=== PATIENT | female | born 1990 | race Caucasian/White ===

== ENCOUNTER 2022-06-13 01:17 | Emergency (ER) | payer OTHER ==
[~2022-06-13] VITALS: Ht 157.5 cm; Wt 72.6 kg
[2022-06-13 03:35] VITALS: BP 131/78
--- NOTE | 2022-06-13 03:37 | NUR ---
BIBSELF FROM COUGH X 4 NIGHTS. PT A/OX4. TOLERATING R/A WELL WITH NO RESP DISTRESS. RR EVEN AND NONLABORED.
--- NOTE | 2022-06-13 05:06 | NUR ---
DR QUENTIN CARCAMO AT PT'S BEDSIDE FOR EVAL WITH SENIOR ADVISORY
[2022-06-13] MEDS ORDERED: AMOX-430 PO (05:16)
[2022-06-13] MEDS ORDERED: KETOROLAC TROMETHAMINE INJ 30 MG/ML VIAL ONE (05:17)
[2022-06-13] MEDS ORDERED: IBUP-1955 PO (05:17)
[2022-06-13] MEDS ORDERED: DEXAMETHASONE 4 MG TABLET ONE (05:18)
--- NOTE | 2022-06-13 05:24 | NUR ---
STEP SWAB COLLECTED AND SENT TO LAB
[2022-06-13] MEDS ORDERED: DEXAMETHASONE 1 MG TABLET PO ONE (05:30)
[2022-06-13] MEDS ORDERED: KETOROLAC TROMETHAMINE INJ 30 MG/ML VIAL IM ONE (05:30)
--- NOTE | 2022-06-13 05:33 | NUR ---
Patient discharged to home in stable condition. RX Written and verbal after care instructions given. Patient verbalizes understanding of instruction. pt ambulatory with a steady gait
== END 2022-06-13 05:34 | disposition home or self-care (01) ==
LOC: ER 01:17
DX: J02.9 Acute pharyngitis, unspecified (principal); Z79.899 Other long term (current) drug therapy
CPT/HCPCS: 99283; 96372; 87880; J8540; J1885; 86403-TC